=== PATIENT | male | born 1995 | race Caucasian/White ===

== ENCOUNTER → 2019-01-15 14:40 | Outpatient (POV) | payer OTHER, SELFPAY | PROVIDERS: Visit Provider Dermatology | DX: Z00.00 Encounter for general adult medical examination without abnormal findings (principal) ==

== ENCOUNTER → 2020-01-07 13:01 | Outpatient (CLI) | payer OTHER, SELFPAY ==
--- NOTE | 2020-01-07 13:06 | XR_ITS ---
PROCEDURE: XR WRIST LT MIN 3V CLINICAL INDICATION: left wrist ganglion cyst COMPARISON: No exams were available for comparison FINDINGS: No fracture or dislocation. No lytic or blastic change. There is normal mineralization. The joint spaces are well-preserved. No significant degenerative/arthritic changes. No erosive changes evident. Other findings:None. IMPRESSION: No acute findings. Dictated by: Marques Campbell MD 01/08/2020 06:47 Marques Campbell MD in [place] 01/08/2020 06:47
== END ==
PROVIDERS: Visit Provider Orthopaedic Surgery
DX: M67.432 Ganglion, left wrist (principal)
CPT/HCPCS: 73110

== ENCOUNTER → 2020-10-20 09:18 | Outpatient (POV) | payer OTHER, SELFPAY | PROVIDERS: Visit Provider Nurse Practitioner Family | DX: Z00.00 Encounter for general adult medical examination without abnormal findings (principal) ==